=== PATIENT | female | born 1945 | race Caucasian/White ===

== ENCOUNTER → 2017-12-30 | Outpatient (CLI) | payer OTHER ==
[~2017-12-30] MED LIST: ADVAIR 100-501 EACH INH; ATRALIN45 GM TP; BENADRYL25 MG PO; LEVAQUIN 500 M500 MG PO; LEXAPRO 10 MG T10 M1 PO; LEXAPRO 10 MG T10 MG PO; METHYLPREDNISOL32 MG PO; NAPROSYN250 MG PO; PREDNISONE 10 M10 MG PO; SYMBICORT160 MCG/4.; SYMBICORT80 MCG/4.1 INH; TUMS PO; VIACTIV SOFT C1 EACH; VIACTIV SOFT C1 EACH PO
== END ==
LOC: CAT 11-26 13:18
DX: R91.1 Solitary pulmonary nodule (principal); Z91.041 Radiographic dye allergy status

== ENCOUNTER → 2019-11-03 | Outpatient (CLI) | payer OTHER | LOC: SJCVCIMAG 10-18 16:30 | DX: I21.29 ST elevation (STEMI) myocardial infarction involving other sites (principal); R94.31 Abnormal electrocardiogram [ECG] [EKG]; I10 Essential (primary) hypertension; J44.9 Chronic obstructive pulmonary disease, unspecified; F32.9 Major depressive disorder, single episode, unspecified; M19.90 Unspecified osteoarthritis, unspecified site; M81.0 Age-related osteoporosis without current pathological fracture; Z72.0 Tobacco use; Z79.899 Other long term (current) drug therapy; Z90.710 Acquired absence of both cervix and uterus ==

== ENCOUNTER → 2020-07-12 | Outpatient (CLI) | payer OTHER | LOC: SJCVC 14:09 | PROVIDERS: ATTEND Internal Medicine Cardiovascular Disease | DX: R06.00 Dyspnea, unspecified (principal); I10 Essential (primary) hypertension; I73.9 Peripheral vascular disease, unspecified; R06.02 Shortness of breath; R60.9 Edema, unspecified; Z72.0 Tobacco use ==